=== PATIENT | female | born 1970 | race Caucasian/White ===

== ENCOUNTER 2019-04-21 11:08 | Emergency (ER) | payer OTHER ==
[2019-04-21] MEDS ORDERED: Ondansetron PF 4 MG/2 ML Vial ONE (12:04)
[2019-04-21] MEDS ORDERED: Multivitamins, Adult 10 ML, Thiamine HCl 100 MG, Folic Acid 1 MG in Dextrose 5 %-0.45 %... IV SCH (12:15)
[2019-04-21 12:39] LABS: #Basophils 0.1 thou/uL (0.0-0.2); #Eosinphils 0.1 thou/uL (0.0-0.7); #Lymphocytes 1.5 thou/uL (1.20-3.40); #Monocytes 0.3 thou/uL (0.11-0.59); #Neutrophils 5.8 thou/uL (1.40-6.50); %Basophils 0.7 % (0.0-1.0); %Eosinophils 0.9 % (0.0-10.0); %Lymphocytes 19.4 % (21.0-51.0); %Neutrophils 75.1 % (42.0-75.0); Hemoglobin 12.1 g/dL (12.0-16.0); Mean Corpuscular Hemoglobin 33.1 pg (27.0-31.0); Mean Corpuscular Volume 97.1 fL (78.0-98.0); Mean Platelet Volume 5.8 fL (7.4-10.4); Platelet Count 335 thou/uL (130-400); RBC Distribution Width 14.8 % (11.5-14.5); Red Blood Cell (RBC) Count 3.66 mill/uL (4.20-5.40); White Blood Cell (WBC) Count 7.7 thou/uL (4.8-10.8)
[2019-04-21 13:05] LABS: ALT (SGPT) 44 U/L (8-55); AST (SGOT) 39 U/L (5-34); Albumin 3.7 g/dL (3.5-5.0); Alkaline Phosphatase 98 U/L (40-150); Anion Gap 11 mmol/L (10-20); BUN (Urea Nitrogen) 11 mg/dL (7.0-18.7); Bilirubin, Total 0.3 mg/dL (0.2-1.2); Calc. Creatinine Clearance 0 mL/min (70-130); Calcium 7.5 mg/dL (7.8-10.44); Carbon Dioxide 22 mmol/L (22-29); Chloride 107 mmol/L (98-107); Estimated GFR-MDRD Greater than 90; Globulin 2.2 g/dL (2.4-3.5); Glucose 101 mg/dL (70-105); Potassium 4.1 mmol/L (3.5-5.1); Protein, Total 5.9 g/dL (6.0-8.3); Sodium 136 mmol/L (136-145)
[2019-04-21 13:09] LABS: BHCG - Serum Negative (NEGATIVE); Pregs Control Background? CLEAR/WHITE (CLR/WHITE); Pregs Control Bar Appear? YES (CONTROL BAR)
[2019-04-21] MEDS ORDERED: Lidocaine Viscous Sol 2% 15 ml UD Cup ONE (13:18)
[2019-04-21] MEDS ORDERED: Mag-Al 1200 mg/1200 mg/30 ML UDCUP ONE (13:18)
--- NOTE | 2019-04-21 13:37 | RAD ---
AP CHEST: Date: 04/21/19 HISTORY: Dyspnea. No comparison. FINDINGS: There is hazy density in both lung bases which could represent bibasilar atelectasis. Bibasilar infil trates cannot be excluded. There is also evidence of small bilateral effusions. Upper lung zones appe ar clear. The heart is mildly enlarged. Vascular markings within normal range. IMPRESSION: Bibasilar atelectasis or infiltrate and evidence of small bilateral effusions. POS: C
--- NOTE | 2019-04-25 16:11 | EKG ---
Test Reason : Blood Pressure : / mmHG Vent. Rate : 063 BPM Atrial Rate : 063 BPM P-R Int : 176 ms QRS Dur : 088 ms QT Int : 410 ms P-R-T Axes : 051 067 046 degrees QTc Int : 419 ms Normal sinus rhythm Normal ECG No ST elevation/CT Confirmed by DARRYL REDDY M.D. ([id number]), newspaper or periodical editor CANELO MEEK ([id number] on 04/25/2019 4:10:38 PM Referred By: Confirmed By:DARRYL REDDY M.D.
== END 2019-04-21 14:18 ==
LOC: ERS 11:08
DX: F10.129 Alcohol abuse with intoxication, unspecified (principal); F17.210 Nicotine dependence, cigarettes, uncomplicated; F41.9 Anxiety disorder, unspecified
CPT/HCPCS: 36415; 71045; 80053; 84484; 84703; 85025; 93005; 96361; 96365; 96375; J2405; J3411; J7042